=== PATIENT | female | born 1970 | race Caucasian/White ===

== ENCOUNTER → 2020-10-04 | Outpatient (CLI) | payer OTHER ==
--- NOTE | 2020-10-04 12:59 | CARD ---
MR#: [id number] Date of Study: 10/04/2020 Ordering Physician: ERIKA OLEARY, Referring Physician: ERIKA OLEARY, Tech: Marce Oliver SARAH APPROVED REPORT EXAM: Two-dimensional and M-mode echocardiogram with Doppler and color Doppler. Other Information Quality : Good INDICATION Fatigue Post Covid 07/31 2D DIMENSIONS RVDd2.8 (2.9-3.5cm)Left Atrium(2D)3.3 (1.6-4.0cm) IVSd0.7 (0.7-1.1cm)Aortic Root(2D)2.7 (2.0-3.7cm) LVDd4.9 (3.9-5.9cm)LVOT Diameter2.0 (1.8-2.4cm) PWd0.7 (0.7-1.1cm)LVDs3.1 (2.5-4.0cm) FS (%) 37.2 %SV75.2 ml LVEF(%)67.0 (>50%) Aortic Valve AoV Peak Reji.131.5cm/sAoV VTI26.9cm AO Peak GR.6.9mmHgLVOT Peak Reji.96.1cm/s AO Mean GR.4mmHgAVA (VMAX)2.27cm2 ASHLEIGH (VTI)2.40cm2 Mitral Valve MV E Rfkgtzmy76.8cm/sMV DECEL SSUT087rz MV A Dadutucv41.9cm/sE/A Ratio1.4 Tricuspid Valve TR P. Jvevfwdm633in/sRAP [id number] TR Peak Gr.59rrLbIDEJ34xdTq Pulmonary Vein S1 Glxmashm60.6cm/sD2 Kwqqrgzy81.8cm/s LEFT VENTRICLE The left ventricle is normal size. There is normal left ventricular wall thickness. The left ventricu lar systolic function is normal. The Ejection Fraction is 55-60%. There is normal LV segmental wall m otion. The left ventricular diastolic function and filling is normal for age. RIGHT VENTRICLE The right ventricle is normal size. The right ventricular systolic function is normal. ATRIA The left atrium size is normal. The right atrium size is normal. The interatrial septum is intact wit h no evidence for an atrial septal defect or patent foramen ovale as noted on 2-D or Doppler imaging. AORTIC VALVE The aortic valve is calcified but opens well. Doppler and Color Flow revealed no significant aortic r egurgitation. There is no significant aortic valvular stenosis. MITRAL VALVE The mitral valve is calcified but opens well. There is no evidence of mitral valve prolapse. There is no mitral valve stenosis. Doppler and Color-flow revealed trace mitral regurgitation. TRICUSPID VALVE The tricuspid valve is normal in structure and function. Doppler and Color Flow revealed trace tricus pid regurgitation. The PA pressure was estimated at 22 mmHg. There is no tricuspid valve stenosis. PULMONIC VALVE The pulmonic valve is not well visualized. Doppler and Color Flow revealed no pulmonic valvular regur gitation. There is no pulmonic valvular stenosis. GREAT VESSELS The aortic root is normal in size. The ascending aorta is normal in size. The IVC is normal in size a nd collapses >50% with inspiration. PERICARDIAL EFFUSION There is no evidence of significant pericardial effusion. Critical Notification Critical Value: No <Conclusion> The left ventricular systolic function is normal. The Ejection Fraction is 55-60%. There is normal LV segmental wall motion. Trace mitral regurgitation. Trace tricuspid regurgitation. The PA pressure was estimated at 22 mmHg. There is no evidence of significant pericardial effusion. Signed by : Devante Henry, Electronically Approved : 10/04/2020 12:58:53
== END ==
LOC: MRI 09:24
PROVIDERS: ATTEND Family Medicine
DX: I08.0 Rheumatic disorders of both mitral and aortic valves (principal); R68.89 Other general symptoms and signs; R53.83 Other fatigue
CPT/HCPCS: 93306

== ENCOUNTER → 2020-10-11 | Outpatient (CLI) | payer OTHER ==
[2020-10-11] MEDS: GADOTERATE 7.5 MMOL/15ML VIAL. IVP ONE (11:07)
--- NOTE | 2020-10-11 13:35 | RAD ---
Abdominal MRI with and without IV contrast INDICATION: Adrenal mass. COMPARISON: No relevant comparisons currently available TECHNIQUE: Multiplanar multisequence MR imaging of the abdomen was performed including postcontrast i maging following IV administration of 10 mL Clariscan Findings: Left adrenal gland shows a 2.2 x 1.9 x 2.2 cm oval T2 bright, T1 hypointense lesion that shows no sig nificant enhancement postcontrast. No solid component or mural nodule is apparent. The remaining solid abdominal organs are unremarkable. There is no adenopathy or soft tissue mass in the abdominal cavity. No findings of bowel obstruction, perforation or acute inflammation. The major abdominal vessels are normal in caliber. Bones reveal no significant abnormalities. Included lung bases are unremarkable. IMPRESSION: Benign-appearing left adrenal 2.2 cm nodule, favoring an adenoma. Recommend correlation with biochemi singh markers and consider surveillance follow-up adrenal mass protocol CT or MRI in 12 months. Electronically signed by: Kierra Mathur MD (10/11/2020 1:33 PM) [id number]
== END ==
LOC: MRI 09:41
PROVIDERS: ATTEND Family Medicine
DX: E27.8 Other specified disorders of adrenal gland (principal)
CPT/HCPCS: 74183; A9575